=== PATIENT | male | born 1980 | race Caucasian/White ===

== ENCOUNTER 2018-03-03 02:35 | Emergency (ER) | payer BC ==
[2018-03-03] MEDS ORDERED: Lidocaine 1% with EPINEPHrine 1:100,000 20 ML MDV INJECT ONE (03:55)
--- NOTE | 2018-03-03 04:36 | EDM.PDOC ---
ED HPI GENERAL MEDICAL PROBLEM - General Chief Complaint: ENT Problem Stated Complaint: TOOTH PAIN Time Seen by Provider: 03/03/18 03:35 Source of Information: Reports: Patient History Limitations: Reports: No Limitations - History of Present Illness INITIAL COMMENTS - FREE TEXT/NARRATIVE: Patient is a 37-year-old male presents to emergency department with a swelling on his left lower jaw. Patient states it's been there for a little less than a week. He felt that it was due to one of his teeth having poor dentition and that perhaps this form because of that. The patient has a significant amount of facial hair and he shaves. Patient denies any fever chills cough and chest pain shortness of breath nausea or vomiting. Onset: Gradual Duration: Day(s):, Getting Worse Location: Reports: Face Quality: Reports: Ache, Throbbing Severity: Moderate Improves with: Reports: None Worsens with: Reports: None Context: Reports: Other (See history of present illness) Associated Symptoms: Reports: Other (Toothache) Left Lower Tooth/Teeth Pain Score (Numeric/FACES): 8 - Related Data Allergies Allergy/AdvReac Type Severity Reaction Status Date / Time No Known Allergies Allergy Verified 03/03/18 02:43 Home Meds: Home Meds Amoxicillin/Clavulanate K [Augmentin 500-125 MG] 1 tab PO Q8H #15 tab 03/03/18 [ Rx] Ibuprofen [Motrin] 600 mg PO Q6H PRN #20 tab 03/03/18 [Rx] Past Medical History - Past Health History Medical/Surgical History: Denies Medical/Surgical History HEENT History: Reports: Impaired Vision Other HEENT History: Wears glasses Psychiatric History: Reports: Bipolar Social & Family History - Tobacco Use Smoking Status *Q: Current Every Day Smoker Years of Tobacco use: 14 Packs/Tins Daily: 1 ED ROS GENERAL - Review of Systems Review Of Systems: See Below Constitutional: Reports: No Symptoms HEENT: Reports: Dental Pain, Other (Toothache) Respiratory: Reports: No Symptoms Cardiovascular: Reports: No Symptoms Endocrine: Reports: No Symptoms GI/Abdominal: Reports: No Symptoms : Reports: No Symptoms Musculoskeletal: Reports: No Symptoms Skin: Reports: Lumps (Left lower jaw facial swelling) Neurological: Reports: No Symptoms Psychiatric: Reports: No Symptoms Hematologic/Lymphatic: Reports: No Symptoms Immunologic: Reports: No Symptoms ED EXAM, GENERAL - Physical Exam Exam: See Below Exam Limited By: No Limitations General Appearance: Alert, WD/WN, No Apparent Distress Ears: Normal External Exam, Normal Canal, Hearing Grossly Normal, Normal TMs Nose: Normal Inspection, Normal Mucosa, No Blood Throat/Mouth: Normal Inspection, Normal Lips, Normal Gums, Other (Poor dentition with multiple dental caries but no gingival abscess noted.) Head: Atraumatic, Normocephalic Neck: Normal Inspection, Supple, Non-Tender, Full Range of Motion Respiratory/Chest: No Respiratory Distress, Lungs Clear, Normal Breath Sounds, No Accessory Muscle Use, Chest Non-Tender Cardiovascular: Normal Peripheral Pulses, Regular Rate, Rhythm, No Edema, No Gallop, No JVD, No Murmur, No Rub GI/Abdominal: Normal Bowel Sounds, Soft, Non-Tender, No Organomegaly, No Distention, No Abnormal Bruit, No Mass Back Exam: Normal Inspection, Full Range of Motion, NT Extremities: Normal Inspection, Normal Range of Motion, Non-Tender, Normal Capillary Refill, No Pedal Edema Neurological: Alert, Oriented, Normal Cognition Psychiatric: Normal Affect, Normal Mood Skin Exam: Warm, Dry, Intact, Normal Color, No Rash ED GENERAL MEDICAL PROCEDURES - Additional/Other Procedure(s) Other (Free Text) Procedure(s): Incision and drainage procedure note. Patient has a 2 inch area of swelling that appears to be an abscess on the left lower jaw. Does not appear to be draining inside of the mouth the gums are not highly inflamed nor is there swelling of the gums. Skin was cleaned in the usual manner with Betadine. Local anesthesia was used with 1% lidocaine with epi, 1/2 mL. Under sterile procedure a large-bore needle was initially inserted into the area to see if there was posterior drainage and there was a large amount. A 15 blade was used to make a small horizontal incision in into the abscess. The abscess drained a significantly moderate amount of pus that was green in color. The wound was then explored and irrigated with 50 mL of normal saline. I put a small amount of packing of one fourth iodoform into the wound. Dressing was applied. Patient was given instructions on how to care for the wound. Patient tolerated procedure well Course - Vital Signs Last Recorded V/S: Last Vital Signs Temp 98.0 F 03/03/18 02:43 Pulse 74 03/03/18 02:43 Resp 16 03/03/18 02:43 BP 138/74 03/03/18 02:43 Pulse Ox 98 03/03/18 02:43 - Orders/Labs/Meds Orders: Active Orders 24 hr Category Date Time Status CULTURE WOUND [RM] Stat Lab 03/03/18 04:20 Ordered Meds: Medications Discontinued Medications Generic Name Dose Route Start Last Admin Trade Name Freq PRN Reason Stop Dose Admin Lidocaine/Epinephrine 20 ml 03/03/18 03:55 03/03/18 04:31 Xylocaine 1% With Epinephrine 1:100,000 INJECT 03/03/18 03:56 20 ml ONETIME ONE Administration Departure - Departure Time of Disposition: 04:35 Disposition: DC/Tfer to [place] [address] Condition: Good Clinical Impression: Facial abscess, Encounter for incision and drainage procedure, Dental caries, Encounter for wound care - Discharge Information *PRESCRIPTION DRUG MONITORING PROGRAM REVIEWED*: Not Applicable *COPY OF PRESCRIPTION DRUG MONITORING REPORT IN PATIENT TYLER: Not Applicable Instructions: Skin Abscess, Incision and Drainage Referrals: PCP,None [Primary Care Provider] - Additional Instructions: Keep wound and dressing clean and dry for 24 hours. You may remove the packing into the second day. Keep area clean and wash with soap. Do not shave in that area. Follow-up with your primary care physician in 3 days for reevaluation. - My Orders Last 24 Hours: My Active Orders 03/03/18 04:20 CULTURE WOUND [RM] Stat - Assessment/Plan Last 24 Hours: My Active Orders 03/03/18 04:20 CULTURE WOUND [RM] Stat
== END 2018-03-03 04:59 | disposition home or self-care (01) ==
LOC: JD.ED 02:35
DX: L02.01 Cutaneous abscess of face (principal); F17.210 Nicotine dependence, cigarettes, uncomplicated
CPT/HCPCS: 10060; 87070; 99283-25